=== PATIENT | female | born 1985 | race Caucasian/White ===

== ENCOUNTER 2024-05-09 07:10 | Emergency (ER) | payer OTHER, SELFPAY ==
[2024-05-09 07:12] VITALS: BP 120/70
--- NOTE | 2024-05-09 09:00 | ED.GENMED ---
History of Present Illness
General
Chief Complaint: Cold/Flu/URI Symptoms
Source: patient
Exam Limitations: none
Time Seen by Provider: 05/09/24 08:50
History of Present Illness
History of Present Illness:
38-year-old otherwise healthy female presents with 3 days worth of cough congestion and sweats chills aches. She has some discomfort in the right chest when she coughs. Contains blood when she coughs. No recent travel or surgery. No leg swelling
or calf pain. She does not take any medications regularly. No other complaints at this time
Past History
Past History
ED Past Medical History: None
ED Past Surgical History: Cholecystectomy
Social History
Tobacco: Former smoker
Alcohol: Occasional
Drug: Marijuana
Personal: Partner
Living: with family
Employment: Employed
Phy Exam
Physical Exam
Physical Exam:
General: Well-appearing female no acute respiratory distress HEENT: Normocephalic atraumatic neck is supple heart: Regular rate and rhythm
Lungs: Clear no wheeze extremities: No cyanosis or edema
Course
Orders/Labs/Results
Orders:
Orders
05/09/24 08:59
CR Chest - 2 Views Urgent
Comment:
Reason For Exam: cough, chills
05/09/24 09:14
COVID-19 Antigen Urgent
Source: Nasal Swab
Influenza A+B Rapid Molecular Urgent
[facility] Source: Nasal Swab
Specimen Description:
Vital Signs
Initial and Last Documented VS:
Initial Vital Signs
Temp Pulse Resp BP Pulse Ox
98.6 F 85 18 120/70 100
05/09/24 07:12 05/09/24 07:12 05/09/24 07:12 05/09/24 07:12 05/09/24 07:12
Last Documented Vital Signs
Temp Pulse Resp BP Pulse Ox
98.6 F 71 16 118/72 99
05/09/24 07:12 05/09/24 11:35 05/09/24 11:35 05/09/24 11:35 05/09/24 11:35
MDM/Problems Addressed
Differential Diagnosis Includes:
Fatigue myalgias cough subjective fever. Consider viral illness such as COVID or flu versus pneumonia. Chest x-ray pending COVID test pending. Vital signs are stable. No risk factors for PE
*Critical Care Note
Total Time (30-74mins, 75-104mins- exclusive of procedures): Not Applicable
Update Note
Update Note:
COVID and flu negative. Chest x-ray clear. Suspect viral respiratory infection. No respiratory distress on my exam. No fever here. No hypoxia. Recommended hydration supportive care with fever control as well. Stable for discharge.
ED Attending Note
-
Portions of this chart may have been created with voice recognition software.� Occasional wrong word or��sound alike� substitutions may have occurred due to the inherent limitations of voice recognition software.
Discharge Plan
Departure
Patient Disposition: Home (Routine Discharge)
Date of Disposition: 05/09/24
Time of Disposition: 11:36
Patient with high blood pressure during this ER visit?: No
Discharge Problem:
URI (upper respiratory infection)
Instructions: Viral Upper Respiratory Infection, Adult (DC)
Prescriptions:
No Action
No Current Medications
0
Referrals:
NONE,* [Family Provider] -
Activity Restrictions/Additional Instructions:
Drink plenty fluids. Use ibuprofen or Tylenol if needed for fever or pain. Return if worse otherwise follow-up with family doctor
Interventions
Interventions:
*Risk Screen - Suicide Last Done: 05/09/24 07:12
*General Assessment Last Done: 05/09/24 07:12
*Neglect/Abuse Screening Last Done: 05/09/24 07:12
*ED COVID-19 Vaccine History Last Done: 05/09/24 09:15
ED- Pulmonary Assessment Last Done: 05/09/24 09:15
Discharge Date and Time
Print Language: ESTONIAN
[2024-05-09 09:38] LABS: COVID-19 Antigen Negative (Negative)
[2024-05-09 11:35] VITALS: BP 118/72
== END 2024-05-09 11:50 | disposition home or self-care (01) ==
LOC: EMR 07:10
PROVIDERS: Physician Assistant; EMERGENCY PHYSICIAN Emergency Medicine
DX: J06.9 Acute upper respiratory infection, unspecified (principal); Z87.891 Personal history of nicotine dependence; Z90.49 Acquired absence of other specified parts of digestive tract
CPT/HCPCS: 99283; 71046; 87502; 87811